=== PATIENT | female | born 1945 | race Caucasian/White ===

== ENCOUNTER 2018-03-17 16:06 | Observation (INO) | payer MEDICAID, MEDICARE ==
[2018-03-17 16:20] LABS: ABSOLUTE BASOPHILS # (AUTO) 0.1 10^3/uL (0.0-0.2); ABSOLUTE EOSINOPHILS # (AUTO) 0.1 10^3/uL (0.0-0.6); ABSOLUTE LYMPHOCYTES (AUTO) 2.3 10^3/uL (0.5-4.7); ABSOLUTE MONOCYTES (AUTO) 0.7 10^3/uL (0.1-1.4); ABSOLUTE NEUT (AUTO) 5.1 10^3/uL (1.7-8.2); EOSINOPHILS % (AUTO) 1.4 % (0-6); HEMATOCRIT 45.4 % (36.0-47.0); HEMOGLOBIN 15.3 g/dL (12.0-15.5); LYMPHOCYTES % (AUTO) 27.8 % (13-45); MEAN CORPUSCULAR HEMOGLOBIN 29.8 pg (27.0-33.4); MEAN CORPUSCULAR HGB CONC 33.7 g/dL (32.0-36.0); MEAN CORPUSCULAR VOLUME 88 fl (80-97); MONOCYTES % (AUTO) 8.9 % (3-13); PLATELET COUNT 462 10^3/uL (150-450); RED BLOOD COUNT 5.14 10^6/uL (3.72-5.28); RED CELL DISTRIBUTION WIDTH 13.8 % (11.5-14.0); SEGMENTED NEUTROPHILS % (AUTO) 60.9 % (42-78); TOTAL CELLS COUNTED % (AUTO) 100 %; WHITE BLOOD COUNT 8.4 10^3/uL (4.0-10.5)
--- NOTE | 2018-03-17 16:26 | RADIOLOGY REPORT (SQ) ---
EXAM DESCRIPTION: CHEST SINGLE VIEW COMPLETED DATE/TIME: 03/17/2018 4:17 pm REASON FOR STUDY: bed mp cp COMPARISON: None. EXAM PARAMETERS: NUMBER OF VIEWS: One view. TECHNIQUE: Single frontal radiographic view of the chest acquired. RADIATION DOSE: NA LIMITATIONS: None. FINDINGS: LUNGS AND PLEURA: Minimal right basilar bandlike atelectasis. Lungs are otherwise well in flated and clear. No pleural effusion or pneumothorax. MEDIASTINUM AND HILAR STRUCTURES: No masses. Contour normal. HEART AND VASCULAR STRUCTURES: Heart normal in size. Normal vasculature. BONES: No acute findings. HARDWARE: None in the chest. OTHER: No other significant finding. IMPRESSION: Minimal right basilar atelectasis TECHNICAL DOCUMENTATION: JOB ID: [id number] [employer]- All Rights Reserved Reading location - IP/workstation name: [email or web address]
[2018-03-17 16:38] LABS: ALANINE AMINOTRANSFERASE 38 U/L (9-52); ALBUMIN 4.6 g/dL (3.5-5.0); ALKALINE PHOSPHATASE 94 U/L (38-126); ANION GAP 9 (5-19); ASPARTATE AMINO TRANSFERASE 27 U/L (14-36); BILIRUBIN,DIRECT 0.5 mg/dL (0.0-0.4); BILIRUBIN,TOTAL 0.5 mg/dL (0.2-1.3); BLOOD UREA NITROGEN 9 mg/dL (7-20); CARBON DIOXIDE 28 mmol/L (22-30); CHLORIDE 101 mmol/L (98-107); CREATINE KINASE 72 U/L (30-135); GLUCOSE 112 mg/dL (75-110); POTASSIUM 4.7 mmol/L (3.6-5.0); SODIUM 138.1 mmol/L (137-145); TOTAL PROTEIN 7.8 g/dL (6.3-8.2)
[2018-03-17 16:50] LABS: TROPONIN I < 0.012 ng/mL
--- NOTE | 2018-03-17 17:02 | EKG REPORT ---
SEVERITY:- BORDERLINE ECG - SINUS RHYTHM PROBABLE LEFT ATRIAL ABNORMALITY : Confirmed by: Nicole Viramontes MD 17-Mar-2018 17:01:36
[2018-03-17] MEDS ORDERED: ONDANSETRON HCL INJ/PF 4 MG/2 ML SDV IV ONE (17:46)
--- NOTE | 2018-03-17 17:46 | ER Document Report ---
ED General - General Mode of Arrival: Ambulatory Information source: Patient <AARTI PINEDA - Last Filed: 03/17/18 18:20> <ABISAI ARELLANO - Last Filed: 03/17/18 22:31> - General Chief Complaint: Chest Pain Stated Complaint: CHEST PAIN Time Seen by Provider: 03/17/18 17:34 Notes: Patient is a 73 year old female with Bipolar Disorder, GERD, hypothyroidism presents to the emergency department complaining of chest pain with associated symptoms of nausea, diaphoresis and shortness of breath. Patient states she began to have chest pain around 1700 last night and described it as "feeling like indigestion". She states the pain is exacerbated on exertion and relieved when sitting still. Patient states she went to a clinic around 1400 today and transported to the emergency department via EMS after being profusely diaphoretic. While with EMS patient states she received 2 nitroglycerin tablets which resolved her chest pain and Zofran which temporarily resolved her nausea. She states her chest pain was constant since the onset until 5-10 mins after receiving nitro. At bedside patient only complains of nausea. Patient mentions taking 3 tablets of Phenegran at home which did not relieve her symptoms at all. (AARTI PINEDA) Patient reports she did have a stress test done about 10 years ago. (ABISAI ARELLANO) - Related Data Allergies/Adverse Reactions: ciprofloxacin Allergy (Verified 03/17/18 16:22) Sulfa (Sulfonamide Antibiotics) Allergy (Verified 03/17/18 16:22) Past Medical History - Social History Smoking Status: Current Every Day Smoker Cigarette use (# per day): Yes - 12-15 cigs a day Chew tobacco use (# tins/day): No Frequency of alcohol use: None Drug Abuse: None Family History: Reviewed & Not Pertinent Patient has suicidal ideation: No Patient has homicidal ideation: No GI Medical History: Reports: Hx Gastroesophageal Reflux Disease Psychiatric Medical History: Reports: Hx Bipolar Disorder Past Surgical History: Reports: Hx Breast Surgery - Multiple biopsies, Hx Section <AARTI PINEDA - Last Filed: 03/17/18 18:20> Review of Systems - Review of Systems Constitutional: See HPI, Diaphoresis EENT: No symptoms reported Cardiovascular: See HPI, Chest pain Respiratory: See HPI, Short of breath Gastrointestinal: See HPI, Nausea Genitourinary: No symptoms reported Female Genitourinary: No symptoms reported Musculoskeletal: No symptoms reported Skin: No symptoms reported Hematologic/Lymphatic: No symptoms reported Neurological/Psychological: No symptoms reported -: Yes All other systems reviewed and negative <AARTI PINEDA - Last Filed: 03/17/18 18:20> Physical Exam <AARTI PINEDA - Last Filed: 03/17/18 18:20> <ABISAI ARELLANO - Last Filed: 03/17/18 22:31> - Vital signs Vitals: Pulse Ox 98 03/17/18 16:07 - Notes Notes: GENERAL: Alert, interacts well. No acute distress. HEAD: Normocephalic, atraumatic. EYES: Pupils equal, round, and reactive to light. Extraocular movements intact. ENT: Oral mucosa moist, tongue midline. NECK: Full range of motion. Supple. Trachea midline. LUNGS: Clear to auscultation bilaterally, no wheezes, rales, or rhonchi. No respiratory distress. HEART: Regular rate and rhythm. No murmurs, gallops, or rubs. ABDOMEN: Soft, non-tender. Non-distended. Bowel sounds present in all 4 quadrants. EXTREMITIES: Moves all 4 extremities spontaneously. NEUROLOGICAL: Alert and oriented x3. Normal speech. PSYCH: Normal affect, normal mood. SKIN: Warm, dry, normal turgor. No rashes or lesions noted. (AARTI PINEDA) Course - Laboratory Result Diagrams: 03/17/18 15:28 03/17/18 15:28 <AARTI PINEDA - Last Filed: 03/17/18 18:20> - Laboratory Result Diagrams: 03/17/18 15:28 03/17/18 15:28 - Diagnostic Test Radiology reviewed: Image reviewed, Reports reviewed - Chest x-ray shows minimal right basilar atelectasis, otherwise unremarkable. Gallbladder ultrasound is unremarkable with may be some fatty infiltration of the liver. - EKG Interpretation by Me EKG shows normal: Sinus rhythm, [place], Intervals, QRS Complexes, ST-T Waves Rate: Normal - 74 Rhythm: NSR P Waves: LAE When compared to previous EKG there are: Previous EKG unavailable - Consults Dr. Willams Time consulted: 22:15 Consulted provider: will come to ER <ABISAI ARELLANO - Last Filed: 03/17/18 22:31> - Vital Signs Vital signs: Temp Pulse Resp BP Pulse Ox 20 137/80 H 94 03/17/18 21:01 03/17/18 21:01 03/17/18 21:01 - Laboratory Laboratory results interpreted by me: 03/17/18 03/17/18 15:28 15:28 Plt Count 462 H Glucose 112 H Calcium 11.0 H Direct Bilirubin 0.5 H Discharge <AARTI PINEDA - Last Filed: 03/17/18 18:20> - Discharge Admitting Provider: Hospitalist Unit Admitted: Telemetry <ABISAI ARELLANO - Last Filed: 03/17/18 22:31> - Discharge Clinical Impression: Chest pain Qualifiers: Chest pain type: unspecified Qualified Code(s): R07.9 - Chest pain, unspecified Condition: Stable Disposition: ADMITTED OBSERVATION Scribe Attestation: 03/17/18 19:15 I personally performed the services described in the documentation, reviewed and edited the documentation which was dictated to the scribe in my presence, and it accurately records my words and actions. (ABISAI ARELLANO) Scribe Documentation - Scribe Written by Eileen:: Eileen Trujillo, 03/17/2018 17:57 acting as scribe for :: Naren <AARTI PINEDA - Last Filed: 03/17/18 18:20>
--- NOTE | 2018-03-17 20:06 | RADIOLOGY REPORT (SQ) ---
EXAM DESCRIPTION: U/S ABDOMEN LIMITED W/O DOP COMPLETED DATE/TIME: 03/17/2018 7:52 pm REASON FOR STUDY: Epigastric chest discomfort with nausea COMPARISON: None. TECHNIQUE: Dynamic and static grayscale images acquired of the abdomen and recorded on PACS. Additio nal selected color Doppler and spectral images recorded. LIMITATIONS: None. FINDINGS: PANCREAS: No masses. Visualized pancreatic duct normal caliber. LIVER: Mildly echogenic. LIVER VASCULATURE: Normal directional flow of the main portal vein and hepatic veins. GALLBLADDER: No stones. Normal wall thickness. No pericholecystic fluid. ULTRASOUND-DETECTED NUÑEZ'S SIGN: Negative. INTRAHEPATIC DUCTS AND COMMON DUCT: CBD and intrahepatic ducts normal caliber. No filling defects. INFERIOR VENA CAVA: Normal flow. AORTA: No aneurysm. RIGHT KIDNEY: Normal size, 9.8 cm. Normal echogenicity. No solid or suspicious masses. No hydronephr osis. No calcifications. PERITONEAL AND RIGHT PLEURAL SPACE: No ascites or effusions. OTHER: No other significant findings. IMPRESSION: There may be mild fatty infiltration of the liver. TECHNICAL DOCUMENTATION: JOB ID: [id number] [employer]- All Rights Reserved Reading location - IP/workstation name: [email or web address]
[2018-03-17] MEDS ORDERED: NITROGLYCERIN 0.4 MG/TAB 25 TAB/BOTTLE SL PRN (22:18)
[2018-03-17] MEDS ORDERED: MAG HYDROX/AL HYDROX/SIMETH SUSP 30 ML UDCUP PO PRN (22:18)
[2018-03-17] MEDS ORDERED: CLONAZEPAM 1 MG TABLET PO ONE (22:27)
[2018-03-17] MEDS ORDERED: LITHIUM CARBONATE 300 MG CAPSULE PO ONE (22:28)
[2018-03-17] MEDS ORDERED: QUETIAPINE FUMARATE 100 MG TABLET PO ONE (22:28)
[2018-03-17] MEDS ORDERED: TEMAZEPAM 15 MG CAPSULE PO ONE (22:28)
[2018-03-17] MEDS ORDERED: LACTULOSE SYRUP 20 GM/30 ML UDCUP PO ONE (22:40)
[2018-03-17] MEDS ORDERED: ATORVASTATIN CALCIUM 80 MG TABLET PO ONE (22:45)
[2018-03-17] MEDS ORDERED: HEPARIN SOD (PORCINE) 5,000 UNIT/ML 1 ML SYRINGE SUBCUT ONE (22:45)
[2018-03-18] MEDS ORDERED: ATORVASTATIN CALCIUM 80 MG TABLET PO ONE ×2 (00:05→02:15)
[2018-03-18] MEDS ORDERED: LITHIUM CARBONATE 300 MG CAPSULE PO ONE (00:05)
[2018-03-18] MEDS ORDERED: HEPARIN SOD (PORCINE) 5,000 UNIT/ML 1 ML SYRINGE SUBCUT ONE (02:15)
[2018-03-18 03:16] LABS: CHOLESTEROL 205.24 mg/dL (0-200); CREATINE KINASE 42 U/L (30-135); TRIGLYCERIDES 106 mg/dL (<150)
[2018-03-18 03:21] LABS: TROPONIN I < 0.012 ng/mL
[2018-03-18 03:27] LABS: DIRECT LDL 136 mg/dL (<100)
--- NOTE | 2018-03-18 05:07 | PDOC H&P ---
History of Present Illness Admission Date/PCP: 03/17/18 22:24 Patient complains of: Chest pain History of Present Illness: BEATA ACUNA is a 73 year old female with past medical history of severe benzodiazepine anxiety who presents with 2 days of intermittent retrosternal dull chest pain, nonradiating associated with nausea and diaphoresis. Relieved with nitroglycerin and rest. Exacerbated by activity. She admits pain is somewhat similar to previous esophageal related pain but more intense. Usually requiring esophageal dilatation every 6 months. Denying previous cardiac stress testing. In the emergency room she has an unremarkable workup and is referred to the hospitalist for observation. Past Medical History GI Medical History: Reports: Gastroesophageal Reflux Disease Psychiatric Medical History: Reports: Bipolar Disorder, General Anxiety Disorder Past Surgical History Past Surgical History: Reports: Section Social History Information Source: Patient Smoking Status: Current Every Day Smoker Frequency of Alcohol Use: None Drugs: None - Advance Directive Resuscitation Status: Full Code Family History Family History: Reviewed & Not Pertinent Parental Family History Reviewed: Yes Children Family History Reviewed: Yes Sibling(s) Family History Reviewed.: Yes Medication/Allergy Home Medications: Levothyroxine Sodium [Levothyroxine Sodium] 125 mcg PO QAM 03/17/18 [place] Carbonate 600 mg PO QHS 03/17/18 [place] Carbonate [[place] Carbonate] 300 mg PO QAM 03/17/18 Omeprazole [Omeprazole] 40 mg PO BID 03/17/18 Quetiapine Fumarate [Seroquel] 200 mg PO BID 03/17/18 Temazepam [Temazepam] 30 mg PO QHS 03/17/18 Allergies/Adverse Reactions: ciprofloxacin Allergy (Verified 03/17/18 16:22) Sulfa (Sulfonamide Antibiotics) Allergy (Verified 03/17/18 16:22) Review of Systems Constitutional: ABSENT: chills, fever(s), headache(s), weight gain, weight loss Eyes: ABSENT: visual disturbances Ears: ABSENT: hearing changes Cardiovascular: ABSENT: chest pain, dyspnea on exertion, edema, orthropnea, palpitations Respiratory: ABSENT: cough, hemoptysis Gastrointestinal: ABSENT: abdominal pain, constipation, diarrhea, hematemesis, hematochezia, nausea, vomiting Genitourinary: ABSENT: dysuria, hematuria Musculoskeletal: ABSENT: joint swelling Integumentary: ABSENT: rash, wounds Neurological: ABSENT: abnormal gait, abnormal speech, confusion, dizziness, focal weakness, syncope Psychiatric: ABSENT: anxiety, depression, homidical ideation, suicidal ideation Endocrine: ABSENT: cold intolerance, heat intolerance, polydipsia, polyuria Hematologic/Lymphatic: ABSENT: easy bleeding, easy bruising Physical Exam Vital Signs: Temp Pulse Resp BP Pulse Ox 98.5 F 15 139/68 H 87 L 03/18/18 02:54 03/18/18 01:00 03/17/18 22:01 03/18/18 02:05 General appearance: PRESENT: no acute distress, well-developed, well-nourished Head exam: PRESENT: atraumatic, normocephalic Eye exam: PRESENT: conjunctiva pink, EOMI, PERRLA. ABSENT: scleral icterus Ear exam: PRESENT: normal external ear exam Mouth exam: PRESENT: moist, tongue midline Neck exam: ABSENT: carotid bruit, JVD, lymphadenopathy, thyromegaly Respiratory exam: PRESENT: clear to auscultation julee. ABSENT: rales, rhonchi, wheezes Cardiovascular exam: PRESENT: RRR. ABSENT: diastolic murmur, rubs, systolic murmur Pulses: PRESENT: normal dorsalis pedis pul Vascular exam: PRESENT: normal capillary refill GI/Abdominal exam: PRESENT: normal bowel sounds, soft. ABSENT: distended, guarding, mass, organolmegaly, rebound, tenderness Rectal exam: PRESENT: deferred Extremities exam: PRESENT: full ROM. ABSENT: calf tenderness, clubbing, pedal edema Neurological exam: PRESENT: alert, awake, oriented to person, oriented to place , oriented to time, oriented to situation, CN II-XII grossly intact. ABSENT: motor sensory deficit Psychiatric exam: PRESENT: appropriate affect, normal mood. ABSENT: homicidal ideation, suicidal ideation Skin exam: PRESENT: dry, intact, warm. ABSENT: cyanosis, rash Results Laboratory Results: 03/18/18 02:26 Triglycerides 106 Cholesterol 205.24 H LDL Cholesterol Direct 136 H VLDL Cholesterol 21.0 HDL Cholesterol 37 L 03/18/18 03/18/18 02:26 02:26 Creatine Kinase 42 CK-MB (CK-2) 2.30 Troponin I < 0.012 Impressions: Chest X-Ray 03/17/18 16:07 IMPRESSION: Minimal right basilar atelectasis Abdomen Ultrasound 03/17/18 17:46 IMPRESSION: There may be mild fatty infiltration of the liver. Assessment & Plan - Diagnosis (1) Chest pain Qualifiers: Chest pain type: unspecified Qualified Code(s): R07.9 - Chest pain, unspecified Is this a current diagnosis for this admission?: Yes Plan: Currently pain-free, telemetry observation, follow-up cardiac enzymes, lipid profile, TSH and Cardiolite stress test. (2) Esophageal stricture Is this a current diagnosis for this admission?: Yes Plan: Quite possibly the cause of #1, continue PPI with outpatient GI follow-up. (3) Anxiety Is this a current diagnosis for this admission?: Yes Plan: Outpatient regiment including benzodiazepine and lithium ordered. - Time Time Spent: 30 to 50 Minutes - Inpatient Certification Medical Necessity: Need Close Monitoring Due to Risk of Patient Decompensation
[2018-03-18] MEDS ORDERED: HEPARIN SOD (PORCINE) 5,000 UNIT/ML 1 ML SYRINGE SUBCUT SCH ×2 (06:00→10:00)
[2018-03-18] MEDS ORDERED: LITHIUM CARBONATE 300 MG CAPSULE PO SCH ×2 (08:00→22:00)
[2018-03-18] MEDS ORDERED: LEVOTHYROXINE SODIUM 0.025 MG TABLET PO SCH (08:00)
[2018-03-18 09:44] LABS: CREATINE KINASE MB 2.48 ng/mL (<4.55)
[2018-03-18 09:45] LABS: TROPONIN I < 0.012 ng/mL
[2018-03-18] MEDS ORDERED: DOCUSATE SODIUM 100 MG CAPSULE PO SCH (10:00)
[2018-03-18] MEDS ORDERED: QUETIAPINE FUMARATE 100 MG TABLET PO SCH (10:00)
[2018-03-18] MEDS ORDERED: LANSOPRAZOLE 30 MG TAB.RAP.DR PO SCH (10:00)
[2018-03-18] MEDS ORDERED: REGADENOSON INJ 0.4 MG/5 ML DISP.SYRIN IV ONE (12:00)
[2018-03-18 12:25] VITALS: BP 122/60
[2018-03-18 15:12] LABS: CREATINE KINASE MB 2.37 ng/mL (<4.55)
[2018-03-18 15:17] LABS: TROPONIN I < 0.012 ng/mL
--- NOTE | 2018-03-18 17:05 | PDOC DISCHARGE SUMMARY ---
General - Admit/Disc Date/PCP Admission Date/Primary Care Provider: 03/17/18 22:24 Discharge Date: 03/18/18 - Discharge Diagnosis (1) Anxiety Is this a current diagnosis for this admission?: Yes Summary: Patient has bipolar disorder and anxiety. It on her home psychiatric meds during the hospitalization without changes. She plans to see her psychiatrist before the end of the day, after discharge she is heading straight to the office as she feels she may be starting to have a panic attack. (2) Chest pain Is this a current diagnosis for this admission?: Yes Summary: Patient was admitted with chest discomfort. The known history of esophageal stricture needing dilatation. She was brought into the hospital secondary to the description of her pain. She had negative cardiac enzymes and she has now had a negative Cardiolite stress test. Is also not yet in the computer but Dr. Viramontes verbally gave me the results that her stress test was normal. (3) Esophageal stricture Is this a current diagnosis for this admission?: Yes Summary: He has known esophageal stricture. She is planning to go to her destination sign [place] within the week to see if she needs another dilatation. She also knows to return to the hospital with any concerning symptoms such as inability to swallow, regurgitation. - Additional Information Resuscitation Status: Full Code Discharge Diet: As Tolerated Discharge Activity: Balance Activity w/Rest Home Medications: Levothyroxine Sodium 125 mcg PO Q6AM 03/17/18 [place] Carbonate 300 mg PO QAM 03/17/18 [place] Carbonate 600 mg PO QHS 03/17/18 Omeprazole 40 mg PO BID 03/17/18 Quetiapine Fumarate [Seroquel] 200 mg PO BID 03/17/18 Temazepam 30 mg PO QHS 03/17/18 History of Present Illness Patient complains of: Chest discomfort History of Present Illness: BEATA ACUNA is a 73 year old woman with past medical history of severe benzodiazepine dependent anxiety who presents with 2 days of intermittent retrosternal dull chest pain, nonradiating associated with nausea and diaphoresis. Relieved with nitroglycerin and rest. Exacerbated by activity. She admits pain is somewhat similar to previous esophageal related pain but more intense. Usually requiring esophageal dilatation every 6 months. Denying previous cardiac stress testing. In the emergency room she has an unremarkable workup and is referred to the hospitalist for observation. Hospital Course Hospital Course: Please see problem list Physical Exam Vital Signs: Temp Pulse Resp BP Pulse Ox 98.5 F 94 18 122/60 97 03/18/18 15:12 03/18/18 15:12 03/18/18 15:12 03/18/18 15:12 03/18/18 15:12 General appearance: PRESENT: cooperative, mild distress Head exam: PRESENT: atraumatic, normocephalic Eye exam: PRESENT: EOMI. ABSENT: conjunctival injection, scleral icterus Mouth exam: PRESENT: moist, tongue midline Respiratory exam: PRESENT: clear to auscultation julee, unlabored. ABSENT: rales , rhonchi, wheezes Cardiovascular exam: PRESENT: RRR. ABSENT: systolic murmur Pulses: PRESENT: normal radial pulses GI/Abdominal exam: PRESENT: normal bowel sounds, soft. ABSENT: distended, guarding, tenderness Extremities exam: ABSENT: pedal edema Musculoskeletal exam: PRESENT: other - no chest wall TTP Neurological exam: PRESENT: alert, awake, oriented to person, oriented to place , oriented to situation, CN II-XII grossly intact Psychiatric exam: PRESENT: anxious Skin exam: PRESENT: dry, intact, warm Results Laboratory Results: 03/18/18 02:26 Triglycerides 106 Cholesterol 205.24 H LDL Cholesterol Direct 136 H VLDL Cholesterol 21.0 HDL Cholesterol 37 L 03/18/18 03/18/18 03/18/18 02:26 02:26 08:48 Creatine Kinase 42 CK-MB (CK-2) 2.30 2.48 Troponin I < 0.012 < 0.012 03/18/18 14:30 Creatine Kinase CK-MB (CK-2) 2.37 Troponin I < 0.012 Impressions: Chest X-Ray 03/17/18 16:07 IMPRESSION: Minimal right basilar atelectasis Abdomen Ultrasound 03/17/18 17:46 IMPRESSION: There may be mild fatty infiltration of the liver. Qualifiers - * PATIENT BEING DISCHARGED WITH ANY OF THE FOLLOWING DIAGNOSIS: No Plan Discharge Plan: Patient was briefly admitted under observation status for evaluation of chest pain. She had negative cardiac enzymes and negative Cardiolite stress test and is being discharged in hemodynamically stable condition. Patient plans to head to her psychiatrist right after the discharge, psychiatry office nearby. She states that this is standard for her when she feels anxious. Time Spent: Less than 30 Minutes
[2018-03-18] MEDS ORDERED: TEMAZEPAM 15 MG CAPSULE PO SCH (22:00)
[2018-03-18] MEDS ORDERED: ATORVASTATIN CALCIUM 80 MG TABLET PO SCH (22:00)
--- NOTE | 2018-03-22 19:24 | DRAGON STRESS TEST REPORT ---
Intravenous Lexiscan Cardiolite stress test using single photon emmision computerized tomography. Date of procedure: 03/18/2018. Ordering Provider: Dr. Tj Monson. Patient' s status: In Patient. Indication: Chest pain. Coronary risk factors: Age, dyslipidemia, and tobacco abuse disorder. Resting EKG: Sinus Rhythm. Within Normal Limits. Stress EKG: No changes of ischemia. The patient had no chest pain or discomfort, and there were no arrhythmias seen. Reason for termination: Protocol. Conclusions: Normal EKG and hemodynamic response to IV Lexiscan. Nuclear data: At rest the patient was given 11.98 millicuries of technetium 99m sestamibi injected intravenously. As per protocol rest non gated SPECT images were obtained. Subsequently the patient was given intravenous Lexiscan at a dose of 0.4 mg in 5 mL intravenously, followed by flush with normal saline. Subsequently the stress dose of 35.9 millicuries of technetium 99m sestamibi was injected intravenously. As per protocol stress gated images were obtained. Nuclear interpretation: Review of images showed that there was liver contamination artifact of the inferior wall. In spite of this all segments of the myocardium had normal perfusion at rest, and normal perfusion post stress with IV Lexiscan. All segments of the myocardium had normal motion, contraction, and thickening by gated study. T. I D. ratio was normal at 1.02. Computer read rest, and stress left ventricular ejection fraction were 87 %, and 82 %, respectively. Conclusion: 1. There is no scintigraphic evidence of Lexiscan induced myocardial ischemia. 2. There is no scintigraphic evidence of myocardial infarction/scar. Recommendations: Aggressive risk factor modification, and treating the underlying co- morbidities. MTDD
== END 2018-03-18 15:47 | disposition home or self-care (01) ==
LOC: ER 16:06 → EH 22:24 → 4W 03-18 11:59
PROVIDERS: ADMIT Internal Medicine; ATTEND Internal Medicine
DX: F41.1 Generalized anxiety disorder (principal); F31.9 Bipolar disorder, unspecified; R07.89 Other chest pain; K22.2 Esophageal obstruction; R11.0 Nausea; R61 Generalized hyperhidrosis; F13.20 Sedative, hypnotic or anxiolytic dependence, uncomplicated; F17.210 Nicotine dependence, cigarettes, uncomplicated; K21.9 Gastro-esophageal reflux disease without esophagitis; E03.9 Hypothyroidism, unspecified; Z79.899 Other long term (current) drug therapy; Z98.890 Other specified postprocedural states
CPT/HCPCS: 93005; 99285; 96372; 96374; 36415 ×2; 82553 ×2; 82550 ×2; 85025; 80053; 84484 ×2; 80061; 93017; 71045; 76705; 78452; 93010; G0378 ×3; A9500; J2785; A9270 ×8; J1644; J3490 ×2; J2405; Q9969

== ENCOUNTER 2018-08-04 17:11 | Emergency (ER) | payer MEDICARE ==
[2018-08-04 19:18] LABS: ABSOLUTE LYMPHOCYTES (AUTO) 1.4 10^3/uL (0.5-4.7); ABSOLUTE MONOCYTES (AUTO) 0.5 10^3/uL (0.1-1.4); BASOPHILS % (AUTO) 0.3 % (0-2); EOSINOPHILS % (AUTO) 0.2 % (0-6); HEMATOCRIT 40.7 % (36.0-47.0); HEMOGLOBIN 13.7 g/dL (12.0-15.5); MEAN CORPUSCULAR HEMOGLOBIN 30.1 pg (27.0-33.4); MEAN CORPUSCULAR HGB CONC 33.7 g/dL (32.0-36.0); MEAN CORPUSCULAR VOLUME 89 fl (80-97); MONOCYTES % (AUTO) 5.8 % (3-13); PLATELET COUNT 445 10^3/uL (150-450); RED BLOOD COUNT 4.57 10^6/uL (3.72-5.28); RED CELL DISTRIBUTION WIDTH 13.7 % (11.5-14.0); SEGMENTED NEUTROPHILS % (AUTO) 75.7 % (42-78); TOTAL CELLS COUNTED % (AUTO) 100 %
[2018-08-04 19:34] LABS: ALANINE AMINOTRANSFERASE 27 U/L (9-52); ALBUMIN 4.3 g/dL (3.5-5.0); ALKALINE PHOSPHATASE 104 U/L (38-126); ANION GAP 12 (5-19); ASPARTATE AMINO TRANSFERASE 26 U/L (14-36); BILIRUBIN,DIRECT 0.3 mg/dL (0.0-0.4); BILIRUBIN,TOTAL 0.5 mg/dL (0.2-1.3); BLOOD UREA NITROGEN 10 mg/dL (7-20); CARBON DIOXIDE 25 mmol/L (22-30); CHLORIDE 104 mmol/L (98-107); GLUCOSE 110 mg/dL (75-110); LITHIUM 1.3 mEq/L (0.6-1.2); POTASSIUM 3.8 mmol/L (3.6-5.0); SODIUM 140.6 mmol/L (137-145); TOTAL PROTEIN 6.6 g/dL (6.3-8.2)
[2018-08-04 19:36] LABS: ACETAMINOPHEN < 10 ug/mL (10-30); ALCOHOL < 10 mg/dL (NONE DETECTED); SALICYLATE < 1.0 mg/dL (2.0-20.0)
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
[2018-08-04 19:41] LABS: APPEARANCE,URINE SLIGHTLY-CLOUDY; BILIRUBIN,URINE NEGATIVE (NEGATIVE); COLOR,URINE YELLOW; GLUCOSE, URINE NEGATIVE (NEGATIVE); KETONES,URINE TRACE mg/dL (NEGATIVE); LEUKOCYTE ESTERASE,URINE SMALL (NEGATIVE); NITRITE,URINE NEGATIVE (NEGATIVE); PROTEIN,URINE 30 mg/dL (NEGATIVE); URINE SPECIFIC GRAVITY 1.018
[2018-08-04 19:54] LABS: URINE AMPHETAMINES SCREEN NEGATIVE; URINE BARBITURATES SCREEN NEGATIVE; URINE BENZODIAZEPINES SCREEN UNCONFIRMED POSITIVE; URINE COCAINE SCREEN NEGATIVE; URINE MARIJUANA (THC) SCREEN NEGATIVE; URINE METHADONE SCREEN NEGATIVE; URINE PHENCYCLIDINE SCREEN NEGATIVE
[2018-08-05] MEDS ORDERED: ONDANSETRON 4 MG TAB.RAPDIS PO ONE ×3 (02:30→23:44)
--- NOTE | 2018-08-05 07:36 | EKG REPORT ---
SEVERITY:- ABNORMAL ECG - SINUS RHYTHM LEFT ATRIAL ABNORMALITY BORDERLINE T ABNORMALITIES, ANT-LAT LEADS : Confirmed by: Nicole Viramontes MD 05-Aug-2018 07:35:33
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
--- NOTE | 2018-08-05 14:23 | ER Document Report ---
Doctor's Note Notes: 08/05/18 14:23 Rounds: Chart reviewed and patient interviewed. Patient has a history of bipolar disorder. Being seen for agitation and feeling paranoid and frightened. She has not expressed any suicidal or homicidal ideation. Patient is complaining of nausea though she is not vomiting. Seems to be very anxious. Looks unhappy or depressed. Vital signs are all essentially normal. Lab studies were all essentially normal, as well. Patient appears to be medically stable for transfer or discharge. Justin Maldonado MD
[2018-08-05] MEDS ORDERED: LANSOPRAZOLE 30 MG TAB.RAP.DR PO ONE (16:13)
--- NOTE | 2018-08-05 18:23 | RADIOLOGY REPORT (SQ) ---
EXAM DESCRIPTION: CT HEAD WITHOUT COMPLETED DATE/TIME: 08/05/2018 6:13 pm REASON FOR STUDY: Altered mental status, hostile, agitated, or annoy COMPARISON: None. TECHNIQUE: Axial images acquired through the brain without intravenous contrast. Images reviewed wi th bone, brain and subdural windows. Additional sagittal and coronal reconstructions were generated. Images stored on PACS. All CT scanners at this facility use dose modulation, iterative reconstruction, and/or weight based d osing when appropriate to reduce radiation dose to as low as reasonably achievable (ALARA). [facility]: Dose Right [facility]: CareDose [facility]: Dose Right [facility]: Teradose 4D [facility]: Smart Swagsy RADIATION DOSE: CT Rad equipment meets quality standard of care and radiation dose reduction techniq ues were employed. CTDIvol: 53.2 mGy. DLP: 991 mGy-cm. mGy. LIMITATIONS: None. FINDINGS: VENTRICLES: Normal size and contour. CEREBRUM: No masses. No hemorrhage. No midline shift. No evidence for acute infarction. Normal gra y/white matter differentiation. No areas of low density in the white matter. CEREBELLUM: No masses. No hemorrhage. No alteration of density. No evidence for acute infarction. EXTRAAXIAL SPACES: No fluid collections. No masses. ORBITS AND GLOBE: No intra- or extraconal masses. Normal contour of globe without masses. CALVARIUM: No fracture. PARANASAL SINUSES: No fluid or mucosal thickening. SOFT TISSUES: No mass or hematoma. OTHER: No other significant finding. IMPRESSION: NORMAL BRAIN CT WITHOUT CONTRAST. EVIDENCE OF ACUTE STROKE: NO. COMMENT: Quality ID # [id number]: Final reports with documentation of one or more dose reduction techniques (e.g., Automated exposure control, adjustment of the mA and/or kV according to patient size, use of iterative reconstruction technique) TECHNICAL DOCUMENTATION: JOB ID: [id number] [employer]- All Rights Reserved Reading location - IP/workstation name: [email or web address]
[2018-08-05] MEDS ORDERED: LEVOTHYROXINE SODIUM 0.1 MG TABLET PO SCH (23:45)
--- NOTE | 2018-08-05 23:48 | ER Document Report ---
Doctor's Note Notes: 08/05/18 23:47 The patient has been nauseous off and on throughout the day. She has received Zofran twice so far today. At this time she continues to complain B and nauseous. Her blood pressure has been a little elevated throughout the day. She is supposed to be on Synthroid 0.125 mcg daily, that has not been ordered s tory she came in here yesterday. I will repeat her EKG, basic labs and troponin, give her some Zofran, and after nausea is gone give her her Synthroid dose. If her blood pressure continues to remain elevated we will address that later on this evening. 08/06/18 02:11 After I reviewed the patient psychosocial report from earlier this morning, it appears that all her medications were stopped and she was to be held on IVC, observed for stabilization of her mass on her medications, however no medications were recommended or prescribed. She is being given a dose of Ativan now for the agitation she is experiencing this evening.
[2018-08-06 00:33] LABS: ABSOLUTE MONOCYTES (AUTO) 0.6 10^3/uL (0.1-1.4); ABSOLUTE NEUT (AUTO) 5.7 10^3/uL (1.7-8.2); BASOPHILS % (AUTO) 0.6 % (0-2); EOSINOPHILS % (AUTO) 0.4 % (0-6); HEMATOCRIT 41.8 % (36.0-47.0); HEMOGLOBIN 13.9 g/dL (12.0-15.5); LYMPHOCYTES % (AUTO) 23.7 % (13-45); MEAN CORPUSCULAR HEMOGLOBIN 29.4 pg (27.0-33.4); MEAN CORPUSCULAR HGB CONC 33.2 g/dL (32.0-36.0); MEAN CORPUSCULAR VOLUME 89 fl (80-97); MONOCYTES % (AUTO) 7.3 % (3-13); PLATELET COUNT 476 10^3/uL (150-450); RED BLOOD COUNT 4.71 10^6/uL (3.72-5.28); RED CELL DISTRIBUTION WIDTH 13.4 % (11.5-14.0); TOTAL CELLS COUNTED % (AUTO) 100 %; WHITE BLOOD COUNT 8.4 10^3/uL (4.0-10.5)
[2018-08-06 00:58] LABS: ALANINE AMINOTRANSFERASE 34 U/L (9-52); ALBUMIN 4.2 g/dL (3.5-5.0); ALKALINE PHOSPHATASE 109 U/L (38-126); ANION GAP 10 (5-19); ASPARTATE AMINO TRANSFERASE 21 U/L (14-36); BILIRUBIN,DIRECT 0.2 mg/dL (0.0-0.4); BILIRUBIN,TOTAL 0.5 mg/dL (0.2-1.3); BLOOD UREA NITROGEN 8 mg/dL (7-20); CALCIUM 10.3 mg/dL (8.4-10.2); CARBON DIOXIDE 25 mmol/L (22-30); CHLORIDE 102 mmol/L (98-107); GLUCOSE 132 mg/dL (75-110); TOTAL PROTEIN 6.7 g/dL (6.3-8.2)
[2018-08-06] MEDS ORDERED: LORAZEPAM 1 MG TABLET PO ONE (02:10)
[2018-08-06] MEDS: LEVOTHYROXINE SODIUM 0.05 MG TABLET PO SCH (06:01)
--- NOTE | 2018-08-06 09:57 | ER Document Report ---
Doctor's Note Notes: 08/06/18 09:56 Rounds: Chart reviewed and patient interviewed. Patient is very pleasant and seems more positive and upbeat today. Says she feels better. Lab studies are all essentially normal. Her lithium level was elevated at 1.3 when she was admitted. She has had this medication held for a couple of days now. Vital signs are all normal. Patient had a CT of her head done yesterday and it was negative. Patient has been started on her usual thyroid dosage. Patient appears to be medically stable for transfer or discharge. Justin Maldonado MD
--- NOTE | 2018-08-06 10:45 | EKG REPORT ---
SEVERITY:- ABNORMAL ECG - ATRIAL FIBRILLATION NONSPECIFIC T ABNORMALITIES, ANT-LAT LEADS BORDERLINE PROLONGED QT INTERVAL : Confirmed by: Nicoel Viramontes MD 06-Aug-2018 10:44:59
[2018-08-06] MEDS ORDERED: LITHIUM CARBONATE 300 MG CAPSULE PO ONE (16:10)
[2018-08-06] MEDS ORDERED: LITHIUM CARBONATE 300 MG CAPSULE PO SCH (22:00)
[2018-08-07] MEDS ORDERED: HYDROXYZINE PAMOATE 50 MG CAPSULE PO ONE (04:37)
--- NOTE | 2018-08-07 04:39 | ER Document Report ---
Doctor's Note Notes: 08/07/18 04:38 Nurse informed me that patient has been coming out of her room frequently agitated and frustrated. I went spoke with the patient. She says she is frustrated that she has been told twice that she could go home however each time she is not been allowed to go home. She says that she just needs to be able to sleep and calm her nerves down tonight. We will give her a dose of Vistaril. Last night they plan to give her Ativan it did not help. Patient is on lithium. Hopefully the Vistaril help the patient get some rest and sleep. Dictation of this chart was performed using voice recognition software; therefore, there may be some unintended grammatical errors.
[2018-08-07] MEDS: LEVOTHYROXINE SODIUM 0.05 MG TABLET PO SCH (05:34)
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
[2018-08-07] MEDS: LITHIUM CARBONATE 300 MG CAPSULE PO SCH (13:05)
[2018-08-07 15:08] LABS: APPEARANCE,URINE CLEAR; BILIRUBIN,URINE NEGATIVE (NEGATIVE); COLOR,URINE YELLOW; GLUCOSE, URINE NEGATIVE (NEGATIVE); KETONES,URINE NEGATIVE (NEGATIVE); LEUKOCYTE ESTERASE,URINE NEGATIVE (NEGATIVE); NITRITE,URINE NEGATIVE (NEGATIVE); PROTEIN,URINE NEGATIVE (NEGATIVE); URINE SPECIFIC GRAVITY 1.004; UROBILINOGEN,URINE NEGATIVE mg/dL (<2.0)
[2018-08-07] MEDS ORDERED: LITHIUM CARBONATE 300 MG CAPSULE PO SCH (22:00)
[2018-08-08] MEDS: LEVOTHYROXINE SODIUM 0.05 MG TABLET PO SCH (06:00)
[2018-08-08] MEDS: LITHIUM CARBONATE 300 MG CAPSULE PO SCH (08:34)
--- NOTE | 2018-08-08 09:25 | ER Document Report ---
Doctor's Note Notes: 08/08/18 09:24 Patient is calm and cooperative with stable vital signs. The urine analysis yesterday was unremarkable. Patient's daughter was supposedly in route from [place] to pick her up and take her home. She is very comfortable taking care of the patient at home with outpatient follow-up. Patient had no events ov ernight.
--- NOTE | 2018-08-08 11:34 | PSYCHOLOGICAL NOTE ---
Psych Note - Psych Note Date seen by psych provider: 08/06/18 Time seen by psych provider: 08:00 Psych Note: Reason for consult: Psychosis Check-in conducted with patient Patient reports she is feeling much better today and would like to go home. She discloses she has no concerns in returning home and that she will be living with family now. She confirms she was living home alone previously. Patient reports that she is takes her medications as directed. She is mood is euthymic with congruent affect. Patient maintains eye contact well and is able to carry on organized linear conversation. Clinician notes patient does get distracted/confused easily however is able to be redirected to conversation. Patient spoke with patient's family member, Tresa, at bedside. She reports the patient will have family members caring for her at all times until the roxana ent's daughter comes in to [place] to pick her up. Patient's daughter lives in [place]. Patient is alert and orientated to person, place, time and circumstance. Mood is slightly anxious with congruent affect as patient is very focused on returning home with family. Patient denies suicidal and homicidal ideations. Delusions are currently absent and behaviors congruent with an intact reality based presentation IE organized and linear thought process. Eye contact was well-maintained. Conversational speech is halting at times as patient does have memory lapses. Intellectual abilities were estimated within the average range. Attention/concentration fair as patient needs to be redirected to conversation at times. Insight, judgment, and impulse control were poor. Medication recommendations as per psychiatric provider, Dr. Ross are as follows: Discontinue Seroquel, Trazodone, Klonopin Restart home medication of lithium 300mg every morning and 600mg every evening Diagnosis: Unspecified bipolar Disorder per history provided by patient's family Impression/Plan: Patient is recommended for rescind of IVC and is cleared from acute psychiatric services. Patient does not meet IVC criteria per [place] GS 122C. Patient is able to engage in organized and linear conversation and while does lose train of thought is able to be easily redirected conversation. Patient reports that she wants to live with family and family member at bedside reports the patient will be care for by family members. Medication adjustments have been provided. Patient has not had any behavioral outburst during her [facility] stay. It is clear the patient's agitation increases with the thought of staying at [facility]; however, she is able to restrain herself from lashing out. There appears to be a behavioral component to the patient's presentation with family members. Family members discussed with clinician significant concerns of the patient returning home and attending physician granted another evening of respite. Patient's daughter is driving in from [place] to picking supervisor the patient as local family members are unwilling/unable to continue caring for the patient. Patient is recommended to follow-up with neurology. Dr. Wong was consulted and care management this patient; attending physicians in agreement with recommendations and disposition.
[2018-08-08] MEDS ORDERED: ONDANSETRON 4 MG TAB.RAPDIS PO ONE (14:39)
[2018-08-08 14:59] VITALS: BP 160/87
== END 2018-08-08 15:56 | disposition home or self-care (01) ==
LOC: ER 17:11
DX: F22 Delusional disorders (principal); F31.70 Bipolar disorder, currently in remission, most recent episode unspecified; R45.1 Restlessness and agitation; R41.0 Disorientation, unspecified; R11.0 Nausea; I10 Essential (primary) hypertension; F17.200 Nicotine dependence, unspecified, uncomplicated; J44.9 Chronic obstructive pulmonary disease, unspecified; Z79.899 Other long term (current) drug therapy; Z88.1 Allergy status to other antibiotic agents; Z88.2 Allergy status to sulfonamides
CPT/HCPCS: 93005 ×2; 99285; 36415; 87086; 80307 ×4; 80178; 85025; 80053; 81001; 84484; 93010 ×2; A9270 ×9; J3490 ×3; S0119